=== PATIENT | male | born 1955 | race Caucasian/White ===

== ENCOUNTER 2018-07-02 10:21 | Emergency (ER) | payer MEDICARE ==
[~2018-07-02] VITALS: Ht 182.9 cm; Wt 122.7 kg
[2018-07-02 10:24] VITALS: Ht 182.9 cm; Wt 122.7 kg
[2018-07-02] MEDS ORDERED: NORVASC10 MG PO (10:25)
[2018-07-02] MEDS ORDERED: SINGULAIR10 MG PO (10:25)
[2018-07-02] MEDS ORDERED: MOBIC7.5 MG PO (10:26)
[2018-07-02] MEDS ORDERED: LIPITOR10 MG PO (10:26)
[2018-07-02] MEDS ORDERED: OMEPRAZOLE40 MG PO (10:26)
[2018-07-02] MEDS ORDERED: LISINOPRIL-HCTZ1 T13 PO (10:26)
[2018-07-02 11:08] LABS: BASOPHILS 0.4 % (0-2); EOSINOPHILS 3.5 % (0-7); HEMATOCRIT 38.7 % (42.0-54.0); HEMOGLOBIN 13.5 g/dL (13.5-17.5); IMMATURE GRANULOCYTES 0.5 % (0-5); LYMPHOCYTES 16.3 % (15-50); MCHC 34.9 g/dL (31.0-37.0); MCV 97.5 fL (80.0-100.0); MEAN PLATELET VOLUME 9.8 fL (7.4-10.4); NEUTROPHILS 70.3 % (40-80); PLATELET COUNT 183 10x3/uL (130-400); RBC 3.97 10x6/uL (4.20-6.10); RDW 12.5 % (11.5-14.5); WBC 9.8 10x3/uL (4.8-10.8)
[2018-07-02 11:20] LABS: ALBUMIN 3.6 g/dL (3.4-5.0); ALKALINE PHOSPHATASE 56 U/L (46-116); ALT (SGPT) 90 U/L (10-68); BILIRUBIN - TOTAL 0.89 mg/dL (0.2-1.3); CALC OSMOLALITY 271 mosm/kg (275-300); CALCIUM 8.5 mg/dL (8.5-10.1); CARBON DIOXIDE 26.9 mmol/L (21.0-32.0); CHLORIDE - SERUM 100 mmol/L (98-107); CREATININE - SERUM 0.8 mg/dL (0.6-1.3); GLUCOSE 152 mg/dL (74-106); POTASSIUM - SERUM 4.4 mmol/L (3.5-5.1); PROTEIN - SERUM 7.3 g/dL (6.4-8.2); SODIUM 134 mmol/L (136-145); UREA NITROGEN 14 mg/dL (7-18); eGFR NON AFRICAN AMERICAN > 90 mL/min (90-120)
[2018-07-02] MEDS ORDERED: LEVAQUIN500 MG PO (11:38)
[2018-07-02 12:02] VITALS: BP 150/82
== END 2018-07-02 12:06 | disposition home or self-care (01) ==
LOC: D.ER 10:21
PROVIDERS: Family Medicine
DX: K52.9 Noninfective gastroenteritis and colitis, unspecified (principal); K92.1 Melena; I10 Essential (primary) hypertension

== ENCOUNTER → 2019-06-26 13:51 | Outpatient (CLI) | payer MEDICARE ==
[2018-07-02 10:24] VITALS: BMI 36.7
[~2019-06-26 13:51] MED LIST: LEVAQUIN500 MG PO; LIPITOR10 MG PO; LISINOPRIL-HCTZ1 T13 PO; MOBIC7.5 MG PO; NORVASC10 MG PO; OMEPRAZOLE40 MG PO; SINGULAIR10 MG PO
== END | disposition home or self-care (01) ==
LOC: D.HCCARDIO 13:51
PROVIDERS: ATTEND Internal Medicine Cardiovascular Disease
DX: I20.9 Angina pectoris, unspecified (principal)